=== PATIENT | male | born 1955 | race Two or more races ===

== ENCOUNTER 2020-06-19 13:53 | Inpatient (IN) | payer OTHER ==
[~2020-06-19] VITALS: Ht 165.1 cm; Wt 67.6 kg
[2020-06-19] VITALS (14 sets, daily range): BP systolic 121–160; BP diastolic 65–85
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
[2020-06-19] MEDS ORDERED: KETOROLAC TROMETHAMINE INJ 30 MG/ML VIAL ONE (14:47)
--- NOTE | 2020-06-19 14:49 | NUR ---
PT HAVE CT BUT STILL NOT YET DONE. OK TO GIVE TORADOL 30MG EVEN IF CT IS NOT YET DONE.
[2020-06-19] MEDS ORDERED: KETOROLAC TROMETHAMINE INJ 60 MG/2 ML VIAL IM ONE (15:00)
--- NOTE | 2020-06-19 15:48 | NUR ---
Arnaldo phipps in ED - 06/19/20 at 1555 by TAURUS Patient discharged to home in stable condition. Written and verbal after care instructions given. Patient verbalizes understanding of instruction.
[2020-06-19] MEDS ORDERED: ONDANSETRON HCL/PF 4 MG/2 ML VIAL ONE (15:57)
[2020-06-19] MEDS ORDERED: ONDANSETRON HCL/PF 4 MG/2 ML VIAL IVP ONE (16:00)
[2020-06-19] MEDS ORDERED: IV NS 0.9% 1,000 ML BAG IV ONE (16:00)
[2020-06-19 16:10] LABS: BASOPHILS % (AUTO) 0.3 % (0.0-2.0); EOSINOPHILS % (AUTO) 0.1 % (0.0-6.0); HEMATOCRIT 39 % (39-51); HEMOGLOBIN 13.1 g/dL (13.5-17.5); LYMPHOCYTES # (AUTO) 1.1 /CMM (0.8-4.8); LYMPHOCYTES % (AUTO) 10.5 % (20.0-44.0); MEAN CORPUSCULAR HGB CONC 34 g/dl (31.0-36.0); MEAN CORPUSCULAR VOLUME 88 fL (80-96); MONOCYTES # (AUTO) 0.5 /CMM (0.1-1.30); MONOCYTES % (AUTO) 5.2 % (2.0-12.0); NEUTROPHILS # (AUTO) 8.6 /CMM (1.8-8.9); NEUTROPHILS % (AUTO) 83.9 % (43.0-81.0); PLATELET COUNT (AUTO) 180 /CMM (150-450); RED BLOOD CELL COUNT(AUTO) 4.41 MIL/uL (4.5-6.0); WHITE BLOOD COUNT (AUTO) 10.2 K/uL (4.3-11.0)
[2020-06-19 16:20] LABS: CALCIUM, SERUM 8.6 mg/dL (8.5-10.1); CARBON DIOXIDE 27 mmol/L (21-32); CHLORIDE 103 mmol/L (98-107); CREATININE 1.2 mg/dL (0.6-1.3); GLUCOSE 216 mg/dL (74-106); POTASSIUM 3.9 mmol/L (3.5-5.1); SODIUM SERUM 134 mmol/L (136-145); UREA NITROGEN, BLOOD 19 mg/dL (7-18)
[2020-06-19] MEDS ORDERED: CAPT25TA3 PO (16:24)
[2020-06-19] MEDS ORDERED: OMEG1CAP PO (16:24)
[2020-06-19] MEDS ORDERED: ASPI-1169 PO (16:24)
[2020-06-19] MEDS ORDERED: GLIP10TA11 PO (16:24)
[2020-06-19] MEDS ORDERED: METF-440 PO (16:24)
[2020-06-19] MEDS ORDERED: TERA10CA4 PO (16:24)
[2020-06-19 16:28] LABS: ALANINE AMINOTRANSFERASE 50 U/L (12-78); ALBUMIN 3.7 g/dL (3.4-5.0); ALKALINE PHOSPHATASE 94 U/L (46-116); ASPARTATE AMINOTRANSFERASE 24 U/L (15-37); BILIRUBIN,DIRECT 0.1 mg/dL (0.0-0.2); BILIRUBIN,TOTAL 0.3 mg/dL (0.2-1.0); LIPASE 136 U/L (73-393); TOTAL PROTEIN, SERUM 7.1 g/dL (6.4-8.2)
[2020-06-19] MEDS ORDERED: LEVETIRACETAM (500MG) 500 MG in IV NS 0.9% 100 ML IV SCH (16:30)
--- NOTE | 2020-06-19 17:14 | NUR ---
GOT BED 257 READY IN 30 MINS.
--- NOTE | 2020-06-19 17:26 | NUR ---
covid negative result
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
--- NOTE | 2020-06-19 18:30 | NUR ---
RN NOTES RECEIVED PT ON THE GURNEY FROM ER REPORT GIVEN BY ABIGAIL
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
--- NOTE | 2020-06-19 19:20 | NUR ---
RN OPENING NOTE RECEIVED PATIENT ALERT ORIENTED X4 VERBALLY RESPONSIVE ABLE TO MAKE NEEDS KNOWN,NO SOB NOT ACUTE DISTRESS NOTED ON ROOM AIR O2:96% IV SITE IS ON RIGHT FOREARM INTACT PATENT,BED IN LOW POSITION AND LOCKED,CALL LIGHT WITHIN REACH CONTINUE TO MONITOR
[2020-06-19] MEDS ORDERED: MORPHINE SULFATE INJ 2 MG/ML DISP.SYRIN IV PRN (21:00)
[2020-06-19] MEDS ORDERED: ACETAMINOPHEN 325 MG TABLET PO PRN (21:00)
[2020-06-19] MEDS ORDERED: ONDANSETRON HCL/PF 4 MG/2 ML VIAL IVP PRN (21:00)
[2020-06-19] MEDS ORDERED: Z GUARD REMEDY 2 OZ OINT TP PRN (21:00)
[2020-06-19] MEDS ORDERED: DEXTROSE 50%-WATER 50 ML DISP.SYRIN IV PRN (21:00)
[2020-06-19] MEDS ORDERED: INSULIN REGULAR, HUMAN 100 UNIT/ML 3 ML VIAL SQ PRN (21:00)
[2020-06-19] MEDS: IV NS 0.9% 1,000 ML IV PRN (21:01)
[2020-06-19] MEDS: BLOOD SUGAR DIAGNOSTIC 1 EACH STRIP IN SCH (21:58)
[2020-06-19] MEDS ORDERED: TERAZOSIN HCL 5 MG CAPSULE PO SCH (22:00)
[2020-06-20] VITALS (21 sets, daily range): BP systolic 112–153; BP diastolic 44–73
[2020-06-20 04:26] LABS: BASOPHILS % (AUTO) 0.3 % (0.0-2.0); EOSINOPHILS % (AUTO) 0.4 % (0.0-6.0); HEMATOCRIT 36 % (39-51); HEMOGLOBIN 12.3 g/dL (13.5-17.5); LYMPHOCYTES # (AUTO) 1.3 /CMM (0.8-4.8); LYMPHOCYTES % (AUTO) 16.7 % (20.0-44.0); MEAN CORPUSCULAR HGB CONC 34 g/dl (31.0-36.0); MEAN CORPUSCULAR VOLUME 88 fL (80-96); MONOCYTES # (AUTO) 0.6 /CMM (0.1-1.30); MONOCYTES % (AUTO) 7.7 % (2.0-12.0); NEUTROPHILS # (AUTO) 5.7 /CMM (1.8-8.9); NEUTROPHILS % (AUTO) 74.9 % (43.0-81.0); PLATELET COUNT (AUTO) 164 /CMM (150-450); RED BLOOD CELL COUNT(AUTO) 4.07 MIL/uL (4.5-6.0); WHITE BLOOD COUNT (AUTO) 7.6 K/uL (4.3-11.0)
[2020-06-20 04:39] LABS: ALBUMIN 3.1 g/dL (3.4-5.0); BILIRUBIN,TOTAL 0.4 mg/dL (0.2-1.0); CALCIUM, SERUM 8.1 mg/dL (8.5-10.1); CREATININE 1.1 mg/dL (0.6-1.3); MAGNESIUM 2.1 mg/dL (1.8-2.4); PHOSPHORUS 3.3 mg/dL (2.5-4.9); TOTAL PROTEIN, SERUM 6.3 g/dL (6.4-8.2)
[2020-06-20 04:51] LABS: THYROID STIMULATING HORMONE 0.344 uIU/mL (0.358-3.74)
--- NOTE | 2020-06-20 07:30 | NUR ---
RN OPENING NOTE PATIENT IS IN THE BED SLEEPING. ALERT ORIENTED X4 VERBALLY RESPONSIVE ABLE TO MAKE NEEDS KNOWN,NO SOB NOT ACUTE DISTRESS NOTED ON ROOM AIR O2:96% IV SITE IS ON RIGHT FOREARM INTACT PATENT AND NS@75 ML/HR RUNNING NO S/S OF INFECTION OR INFILTRATION NOTE. SAFETY MEASUREMENTS ARE IMPLEMENTED PER HOSPITAL PROTOCOL,BED IS IN LOWEST POSITION AND LOCKED,AND SIDE RAILS ARE UP X2.CALL LIGHT WITHIN THE PATIENT REACH. WILL CONTINUE TO MONITOR
[2020-06-20] MEDS: BLOOD SUGAR DIAGNOSTIC 1 EACH STRIP IN SCH ×3 (07:36→16:45)
--- NOTE | 2020-06-20 07:40 | NUR ---
RN CLOSING NOTE PATIENT REMAINS ALERT ORIENTED X4 VERBALLY RESPONSIVE ON ROOM AIR O2:97% NO SOB NOT ACUTE DISTRESS NOTED ALL DUE MEDS GIVEN MD ORDERED,ENDORSE NEXT COMING SHIFT FOR CONTINUATION OF CARE.
[2020-06-20] MEDS: glipiZIDE 10 MG TABLET PO SCH ×2 (08:08→16:46)
[2020-06-20] MEDS: METFORMIN 500 MG TABLET PO SCH ×2 (08:08→16:45)
[2020-06-20] MEDS ORDERED: LEVETIRACETAM (500MG) 500 MG in IV NS 0.9% 100 ML IV SCH (09:00)
[2020-06-20] MEDS ORDERED: CAPTOPRIL 12.5 MG TABLET PO SCH (09:00)
[2020-06-20] MEDS ORDERED: LISINOPRIL (5MG) 5 MG TABLET PO SCH (09:44)
[2020-06-20] MEDS: IV NS 0.9% 1,000 ML IV PRN (11:46)
--- NOTE | 2020-06-20 14:00 | NUR ---
RN NOTES NO S/S OF DISTRESS OR RESPIRATORY NOTED
--- NOTE | 2020-06-20 14:45 | NUR ---
RN NOTES REPORT WAS GIVEN AT THE BED SIDE TO TAYLER
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
[2020-06-20] MEDS ORDERED: LEVE500T9 PO (16:17)
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
== END 2020-06-20 18:45 | disposition home or self-care (01) | DRG 86 ==
LOC: ER 13:56 → TRANSITION 17:32 → EDBD 17:32 → ICU 17:41 → MED 06-20 14:44 → TELE 06-20 15:08
PROVIDERS: ADMIT Nurse Practitioner Acute Care; ATTEND Nurse Practitioner Acute Care
DX: S06.6X0A Traumatic subarachnoid hemorrhage without loss of consciousness, initial encounter (principal); E87.1 Hypo-osmolality and hyponatremia; S06.5X0A Traumatic subdural hemorrhage without loss of consciousness, initial encounter; Y04.0XXA Assault by unarmed brawl or fight, initial encounter; Y92.89 Other specified places as the place of occurrence of the external cause; Y99.0 Civilian activity done for income or pay; N40.0 Benign prostatic hyperplasia without lower urinary tract symptoms; I10 Essential (primary) hypertension; E11.65 Type 2 diabetes mellitus with hyperglycemia; R04.0 Epistaxis
CPT/HCPCS: 36415; 70450-TC; 71045-TC; 80048-TC; 80053-TC; 80061-TC; 80076-TC; 82962-TC; 83690-TC; 83735-TC; 84100-TC; 84443-TC; 84484-TC; 85025-TC; 85730-TC; 87081-TC; C9803; G0378; J1815; J1885; J1953; J2405; J7030